=== PATIENT | male | born 1955 | race African-American/Black ===

== ENCOUNTER 2017-04-23 17:56 | Emergency (ER) | payer SELFPAY ==
[~2017-04-23] VITALS: Ht 182.9 cm; Wt 92.0 kg
[2017-04-23 19:05] LABS: BASOPHILS % 0.5 % (0.0-2.0); EOSINOPHILS % 1.4 % (0.0-5.0); HEMATOCRIT. 39.1 % (42.0-52.0); HEMOGLOBIN. 12.7 g/dL (14.0-18.0); LYMPHOCYTES % 18.1 % (20.0-50.0); MEAN CORPUSCULAR HEMOGLOBIN 27.8 pg (28.0-32.0); MEAN CORPUSCULAR VOLUME 85.2 fL (80.0-94.0); MEAN PLATELET VOLUME 9.4 fl (7.4-10.4); MONOCYTES % 5.9 % (2.0-8.0); NEUTROPHILS % 74.1 % (40.0-76.0); PLATELET 201 x1000/uL (130-400); RED BLOOD CELL COUNT 4.59 mill/uL (4.7-6.1); RED CELL DISTRIBUTION WIDTH 14.5 % (11.6-14.6)
[2017-04-23 19:14] LABS: PROTHROMBIN TIME 10.8 sec (9.4-11.6)
[2017-04-23 19:16] LABS: AMMONIA < 10 uMol/L (<32)
[2017-04-23 19:17] LABS: CHLORIDE 106 mEq/L (98-107); ETHANOL BLOOD < 10 mg/dL
[2017-04-23] MEDS ORDERED: KETOROLAC 60MG/2ML VIAL IM ONE (21:15)
[2017-04-23 21:37] VITALS: BP 151/104
== END 2017-04-23 23:42 | disposition left against medical advice (07) ==
LOC: ER 18:35
DX: G93.40 Encephalopathy, unspecified (principal); M25.562 Pain in left knee; I10 Essential (primary) hypertension; R79.1 Abnormal coagulation profile; Z79.899 Other long term (current) drug therapy
CPT/HCPCS: 36415; 73560; 80053; 80307; 80329; 82140; 85025; 85610; 96372; 99285; G0482; J1885; Z7610

== ENCOUNTER 2017-04-24 01:25 | Emergency (ER) | payer BC, MEDICARE ==
[~2017-04-24] VITALS: Ht 180.3 cm; Wt 91.0 kg
[2017-04-24] MEDS ORDERED: ACETAMINOPHEN 500MG TABLET PO ONE (03:45)
[2017-04-24 04:31] VITALS: BP 158/106
== END 2017-04-24 04:55 | disposition home or self-care (01) ==
LOC: ER 01:25
DX: M17.12 Unilateral primary osteoarthritis, left knee (principal); M25.462 Effusion, left knee; I10 Essential (primary) hypertension; F17.200 Nicotine dependence, unspecified, uncomplicated; F12.10 Cannabis abuse, uncomplicated; F16.10 Hallucinogen abuse, uncomplicated; Z98.890 Other specified postprocedural states
CPT/HCPCS: 99282

== ENCOUNTER 2017-10-15 12:12 | Emergency (ER) | payer BC, MEDICARE ==
[~2017-10-15] VITALS: Ht 180.3 cm; Wt 86.8 kg
[2017-10-15 13:28] LABS: BASOPHILS % 0.8 % (0.0-2.0); HEMATOCRIT. 38.3 % (42.0-52.0); HEMOGLOBIN. 12.9 g/dL (14.0-18.0); LYMPHOCYTES % 25.5 % (20.0-50.0); MEAN CORPUSCULAR HEMOGLOBIN 28.7 pg (28.0-32.0); MEAN CORPUSCULAR VOLUME 85.4 fL (80.0-94.0); MEAN PLATELET VOLUME 9.3 fl (7.4-10.4); MONOCYTES % 7.5 % (2.0-8.0); NEUTROPHILS % 64.2 % (40.0-76.0); PLATELET 185 x1000/uL (130-400); RED BLOOD CELL COUNT 4.49 mill/uL (4.7-6.1); RED CELL DISTRIBUTION WIDTH 14.6 % (11.6-14.6)
[2017-10-15 13:29] LABS: CHLORIDE 106 mEq/L (98-107)
[2017-10-15 13:33] LABS: PARTIAL THROMBOPLASTIN TIME 27.9 sec (23.4-31.0); PROTHROMBIN TIME 10.1 sec (9.1-11.1)
[2017-10-15 17:10] VITALS: BP 127/86
== END 2017-10-15 17:11 | disposition home or self-care (01) ==
LOC: ER 12:12
DX: S22.42XA Multiple fractures of ribs, left side, initial encounter for closed fracture (principal); X58.XXXA Exposure to other specified factors, initial encounter; Y93.9 Activity, unspecified; Y92.9 Unspecified place or not applicable; R10.10 Upper abdominal pain, unspecified; I10 Essential (primary) hypertension; F16.10 Hallucinogen abuse, uncomplicated; F12.90 Cannabis use, unspecified, uncomplicated; F17.210 Nicotine dependence, cigarettes, uncomplicated
CPT/HCPCS: 36415; 71045; 71250; 80053; 83690; 84484; 85025; 85610; 85730; 93005; 99285; Z7610

== ENCOUNTER 2018-07-18 17:14 | Emergency (ER) | payer BC, MEDICARE ==
[~2018-07-18] VITALS: Ht 172.7 cm; Wt 85.0 kg
[2018-07-18 17:24] VITALS: BP 132/78
== END 2018-07-18 20:11 | disposition left against medical advice (07) ==
LOC: ER 17:26
DX: M25.562 Pain in left knee (principal); Z53.21 Procedure and treatment not carried out due to patient leaving prior to being seen by health care provider

== ENCOUNTER 2018-07-27 16:02 | Emergency (ER) | payer MEDICARE, BC ==
[~2018-07-27] VITALS: Ht 177.8 cm; Wt 72.0 kg
[2018-07-27 16:45] VITALS: BP 150/90
== END 2018-07-27 18:30 | disposition left against medical advice (07) ==
LOC: ER 16:02
DX: Z53.21 Procedure and treatment not carried out due to patient leaving prior to being seen by health care provider (principal)

== ENCOUNTER 2019-01-06 17:07 | Emergency (ER) | payer BC, MEDICARE ==
[~2019-01-06] VITALS: Ht 177.8 cm; Wt 85.0 kg
[2019-01-06 20:35] LABS: BASOPHILS % 0.4 % (0.0-2.0); HEMATOCRIT. 40.7 % (42.0-52.0); HEMOGLOBIN. 13.9 g/dL (14.0-18.0); MEAN CORPUSCULAR HEMOGLOBIN 29.7 pg (28.0-32.0); MEAN CORPUSCULAR VOLUME 87.1 fL (80.0-94.0); MEAN PLATELET VOLUME 9.5 fl (7.4-10.4); MONOCYTES % 4.5 % (2.0-8.0); NEUTROPHILS % 80.1 % (40.0-76.0); PLATELET 152 x1000/uL (130-400); RED BLOOD CELL COUNT 4.67 mill/uL (4.7-6.1); RED CELL DISTRIBUTION WIDTH 14.2 % (11.6-14.6)
[2019-01-06 21:16] LABS: CHLORIDE 111 mEq/L (98-107)
[2019-01-06 21:20] LABS: ETHANOL BLOOD < 10 mg/dL
[2019-01-06 21:31] LABS: CLARITY URINE CLEAR (CLEAR); COLOR URINE YELLOW (YELLOW); KETONES URINE NEGATIVE (NEGATIVE); LEUKOCYTE ESTERASE URINE NEGATIVE (NEGATIVE); NITRITE URINE NEGATIVE (NEGATIVE); OCCULT BLOOD URINE 1+ (NEGATIVE); PROTEIN URINE 2+ (NEGATIVE); SPECIFIC GRAVITY URINE 1.018 (1.005-1.030); UROBILINOGEN URINE 0.2 E.U./dL (0.2-1.0)
[2019-01-06 22:12] LABS: CANNABINOID URINE SCREEN NEGATIVE (NEGATIVE)
[2019-01-06 22:13] LABS: *AMPHETAMINES SCREEN URINE NEGATIVE (NEGATIVE); *BARBITURATES SCREEN URINE NEGATIVE (NEGATIVE); *BENZODIAZEPINES SCREEN URINE NEGATIVE (NEGATIVE); *COCAINE SCREEN URINE NEGATIVE (NEGATIVE); METHADONE URINE SCREEN NEGATIVE (NEGATIVE); OPIATES URINE SCREEN NEGATIVE (NEGATIVE)
[2019-01-06 22:14] LABS: PHENCYCLIDINE URINE SCREEN PRESUMTIVE POSITIVE (NEGATIVE)
[2019-01-06] MEDS ORDERED: TRAMADOL 50MG TABLET PO ONE (23:45)
[2019-01-07] MEDS ORDERED: KETOROLAC 30MG/ML VIAL IM ONE (01:00)
[2019-01-07 01:42] VITALS: BP 152/94
== END 2019-01-07 04:19 | disposition home or self-care (01) ==
LOC: ER 17:07
DX: S02.85XA Fracture of orbit, unspecified, initial encounter for closed fracture (principal); S00.83XA Contusion of other part of head, initial encounter; M54.2 Cervicalgia; M25.512 Pain in left shoulder; I10 Essential (primary) hypertension; F12.10 Cannabis abuse, uncomplicated; Y04.0XXA Assault by unarmed brawl or fight, initial encounter; Y93.89 Activity, other specified; Y92.89 Other specified places as the place of occurrence of the external cause; Y99.8 Other external cause status
CPT/HCPCS: 36415; 70450; 70486; 71045; 72125; 73030; 80053; 80305; 80320; 81003; 82962; 85025; 96372; 99284; J1885; Z7610; G0480

== ENCOUNTER 2019-01-11 15:31 | Emergency (ER) | payer BC, MEDICARE ==
[~2019-01-11] VITALS: Ht 180.3 cm; Wt 79.0 kg
[2019-01-11] MEDS ORDERED: ACETAMINOPHEN 325MG TABLET PO ONE (16:15)
[2019-01-11 17:31] VITALS: BP 128/82
== END 2019-01-11 17:32 | disposition home or self-care (01) ==
LOC: ER 15:51
DX: S06.9X9A Unspecified intracranial injury with loss of consciousness of unspecified duration, initial encounter (principal); S02.2XXA Fracture of nasal bones, initial encounter for closed fracture; M25.512 Pain in left shoulder; W17.89XA Other fall from one level to another, initial encounter; Y92.480 Sidewalk as the place of occurrence of the external cause; Y04.2XXA Assault by strike against or bumped into by another person, initial encounter; Y93.89 Activity, other specified; I10 Essential (primary) hypertension; F12.90 Cannabis use, unspecified, uncomplicated
CPT/HCPCS: 99284

== ENCOUNTER 2019-01-23 19:39 | Emergency (ER) | payer BC, MEDICARE ==
[~2019-01-23] VITALS: Ht 180.3 cm; Wt 80.0 kg
[2019-01-23 19:50] VITALS: BP 148/90
[2019-01-23] MEDS ORDERED: IBUPROFEN 600MG TABLET PO ONE (21:30)
== END 2019-01-23 23:36 | disposition home or self-care (01) ==
LOC: ER 19:39
DX: M54.5 Low back pain (principal); I10 Essential (primary) hypertension; W01.0XXA Fall on same level from slipping, tripping and stumbling without subsequent striking against object, initial encounter; Y93.89 Activity, other specified; Y92.89 Other specified places as the place of occurrence of the external cause; Y99.8 Other external cause status
CPT/HCPCS: 99283

== ENCOUNTER 2019-09-11 11:55 | Emergency (ER) | payer BC, MEDICARE ==
[~2019-09-11] VITALS: Ht 188 cm; Wt 100.0 kg
[2019-09-11 12:27] VITALS: BP 158/49
[2019-09-11 12:27] LABS: BASOPHILS % 1.1 % (0.0-2.0); EOSINOPHILS % 4.5 % (0.0-5.0); HEMATOCRIT. 35.7 % (42.0-52.0); LYMPHOCYTES % 32.9 % (20.0-50.0); MEAN CORPUSCULAR VOLUME 89.1 fL (80.0-94.0); MEAN PLATELET VOLUME 9.5 fl (7.4-10.4); MONOCYTES % 5.6 % (2.0-8.0); NEUTROPHILS % 55.9 % (40.0-76.0); PLATELET 146 x1000/uL (130-400); RED BLOOD CELL COUNT 4.01 mill/uL (4.7-6.1); RED CELL DISTRIBUTION WIDTH 14.5 % (11.6-14.6)
[2019-09-11 12:30] LABS: CHLORIDE 112 mEq/L (98-107)
[2019-09-11 12:35] LABS: ETHANOL BLOOD < 10 mg/dL
[2019-09-11 13:03] LABS: CLARITY URINE CLEAR (CLEAR); COLOR URINE YELLOW (YELLOW); KETONES URINE NEGATIVE (NEGATIVE); LEUKOCYTE ESTERASE URINE NEGATIVE (NEGATIVE); NITRITE URINE NEGATIVE (NEGATIVE); OCCULT BLOOD URINE NEGATIVE (NEGATIVE); PROTEIN URINE 2+ (NEGATIVE); SPECIFIC GRAVITY URINE 1.015 (1.005-1.030); UROBILINOGEN URINE 0.2 E.U./dL (0.2-1.0)
[2019-09-11 13:21] LABS: CANNABINOID URINE SCREEN NEGATIVE (NEGATIVE); METHADONE URINE SCREEN NEGATIVE (NEGATIVE); PHENCYCLIDINE URINE SCREEN PRESUMTIVE POSITIVE (NEGATIVE)
[2019-09-11 13:23] LABS: *AMPHETAMINES SCREEN URINE NEGATIVE (NEGATIVE)
[2019-09-11 13:24] LABS: *BENZODIAZEPINES SCREEN URINE NEGATIVE (NEGATIVE); *COCAINE SCREEN URINE NEGATIVE (NEGATIVE); OPIATES URINE SCREEN NEGATIVE (NEGATIVE)
[2019-09-11 13:28] LABS: *BARBITURATES SCREEN URINE NEGATIVE (NEGATIVE)
== END 2019-09-11 14:13 | disposition home or self-care (01) ==
LOC: ER 11:55
DX: T40.991A Poisoning by other psychodysleptics [hallucinogens], accidental (unintentional), initial encounter (principal); I10 Essential (primary) hypertension; F12.10 Cannabis abuse, uncomplicated; Y92.89 Other specified places as the place of occurrence of the external cause
CPT/HCPCS: 36415; 80053; 80305; 80307; 80320; 80329; 81003; 85025; 93005; 99284; G0480

== ENCOUNTER 2020-01-26 16:02 | Emergency (ER) | payer BC, MEDICARE ==
[~2020-01-26] VITALS: Ht 188 cm; Wt 87.0 kg
[2020-01-26 16:58] VITALS: BP 175/99
== END 2020-01-26 17:00 | disposition home or self-care (01) ==
LOC: ER 16:02
DX: G93.40 Encephalopathy, unspecified (principal); R41.82 Altered mental status, unspecified; I10 Essential (primary) hypertension; F12.10 Cannabis abuse, uncomplicated; F17.200 Nicotine dependence, unspecified, uncomplicated
CPT/HCPCS: 99283

== ENCOUNTER 2021-03-26 12:58 | Emergency (ER) | payer BC, MEDICARE ==
[~2021-03-26] VITALS: Ht 180.3 cm; Wt 82.0 kg
[2021-03-26 13:35] VITALS: BP 145/56
[2021-03-26] MEDS ORDERED: IBUP-2028 MT (21:29)
== END 2021-03-26 13:44 | disposition home or self-care (01) ==
LOC: ER 13:06
DX: Z00.00 Encounter for general adult medical examination without abnormal findings (principal); I10 Essential (primary) hypertension; F12.10 Cannabis abuse, uncomplicated
CPT/HCPCS: 99283

== ENCOUNTER 2021-03-26 19:44 | Emergency (ER) | payer MEDICARE ==
[~2021-03-26] VITALS: Ht 180.3 cm; Wt 73.0 kg
[2021-03-26] MEDS ORDERED: IBUPROFEN 400MG TABLET PO ONE (20:15)
[2021-03-26 20:23] VITALS: BP 136/92
[2021-03-26] MEDS ORDERED: IBUP-2028 MT (21:29)
== END 2021-03-26 21:53 | disposition home or self-care (01) ==
LOC: ER 19:44
DX: M79.672 Pain in left foot (principal); M25.572 Pain in left ankle and joints of left foot; I10 Essential (primary) hypertension; E11.9 Type 2 diabetes mellitus without complications; F12.10 Cannabis abuse, uncomplicated
CPT/HCPCS: 73610; 73630; 99284

== ENCOUNTER 2021-09-21 19:34 | Emergency (ER) | payer MEDICARE ==
[~2021-09-21] VITALS: Ht 180.3 cm; Wt 84.0 kg
[~2021-09-21 19:34] MED LIST: IBUP-2028 MT
[2021-09-21 19:37] VITALS: BP 162/93
== END 2021-09-21 21:56 | disposition left against medical advice (07) ==
LOC: ER 19:34
DX: Z53.21 Procedure and treatment not carried out due to patient leaving prior to being seen by health care provider (principal)

== ENCOUNTER 2021-09-23 19:57 | Emergency (ER) | payer MEDICARE ==
[~2021-09-23] VITALS: Ht 170.2 cm; Wt 83.0 kg
[2021-09-23 19:59] VITALS: BP 150/82
== END 2021-09-23 20:54 | disposition left against medical advice (07) ==
LOC: ER 19:57
DX: Z53.21 Procedure and treatment not carried out due to patient leaving prior to being seen by health care provider (principal)

== ENCOUNTER 2022-05-11 16:29 | Emergency (ER) | payer MEDICARE ==
[~2022-05-11] VITALS: Ht 180.3 cm; Wt 82.0 kg
[2022-05-11] MEDS ORDERED: AMLODIPINE 5MG TABLET PO ONE ×2 (17:00→19:45)
[2022-05-11 18:49] LABS: BASOPHILS % 1.3 % (0.0-2.0); EOSINOPHILS % 4.6 % (0.0-5.0); HEMATOCRIT. 36.5 % (42.0-52.0); HEMOGLOBIN. 12.2 g/dL (14.0-18.0); LYMPHOCYTES % 27.2 % (20.0-50.0); MEAN CORPUSCULAR HEMOGLOBIN 29.4 pg (28.0-32.0); MEAN CORPUSCULAR VOLUME 88.3 fL (80.0-94.0); MEAN PLATELET VOLUME 8.7 fl (7.4-10.4); NEUTROPHILS % 61.9 % (40.0-76.0); PLATELET 240 x1000/uL (130-400); RED BLOOD CELL COUNT 4.14 mill/uL (4.7-6.1)
[2022-05-11 18:59] LABS: CHLORIDE 109 mEq/L (98-107)
[2022-05-11 19:06] LABS: ETHANOL BLOOD < 10 mg/dL
[2022-05-11 19:42] VITALS: BP 180/138
[2022-05-11] MEDS ORDERED: AMLO5TAB4 MT (19:52)
== END 2022-05-11 20:23 | disposition home or self-care (01) ==
LOC: ER 16:29
DX: I16.0 Hypertensive urgency (principal); F12.10 Cannabis abuse, uncomplicated; E11.9 Type 2 diabetes mellitus without complications; I49.9 Cardiac arrhythmia, unspecified; Z98.890 Other specified postprocedural states; S09.90XA Unspecified injury of head, initial encounter; X58.XXXA Exposure to other specified factors, initial encounter; Y93.89 Activity, other specified; Y92.89 Other specified places as the place of occurrence of the external cause; Y99.8 Other external cause status
CPT/HCPCS: 36415; 80053; 80320; 85025; 93005; 99285; G0480

== ENCOUNTER 2022-10-11 17:01 | Emergency (ER) | payer MEDICARE ==
[~2022-10-11] VITALS: Ht 180.3 cm; Wt 82.0 kg
[~2022-10-11 17:01] MED LIST changes: +AMLO5TAB4 MT
[2022-10-11 17:06] VITALS: BP 159/113; PULSE 100; RESP 16; TEMP 98.6; O2SAT 98
== END 2022-10-11 18:23 | disposition home or self-care (01) ==
LOC: ER 17:01
DX: Z04.3 Encounter for examination and observation following other accident (principal); E11.9 Type 2 diabetes mellitus without complications; I10 Essential (primary) hypertension
CPT/HCPCS: 99283

== ENCOUNTER 2023-03-18 19:28 | Emergency (ER) | payer MEDICARE ==
[~2023-03-18] VITALS: Ht 177.8 cm; Wt 80.0 kg
[2023-03-18 19:34] VITALS: O2SAT 99
[2023-03-18 21:37] LABS: BASOPHILS % 0.7 % (0.0-2.0); EOSINOPHILS % 1.9 % (0.0-5.0); HEMATOCRIT. 37.4 % (42.0-52.0); HEMOGLOBIN. 12.2 g/dL (14.0-18.0); LYMPHOCYTES % 16.6 % (20.0-50.0); MEAN CORPUSCULAR HEMOGLOBIN 28.6 pg (28.0-32.0); MEAN CORPUSCULAR HGB CONC 32.7 g/dL (31.0-37.0); MEAN CORPUSCULAR VOLUME 87.5 fL (80.0-94.0); MEAN PLATELET VOLUME 8.9 fl (7.4-10.4); MONOCYTES % 9.4 % (2.0-8.0); NEUTROPHILS % 71.4 % (40.0-76.0); PLATELET 158 x1000/uL (130-400); RED BLOOD CELL COUNT 4.27 mill/uL (4.7-6.1); RED CELL DISTRIBUTION WIDTH 15.3 % (11.6-14.6); WHITE BLOOD COUNT 5.6 x1000/uL (4.5-11.0)
[2023-03-18 21:48] LABS: ALANINE AMINOTRANSFERASE < 7 IU/L (10-49); ALBUMIN 3.8 g/dL (3.2-4.8); ASPARTATE AMINOTRANSFERASE 13 IU/L (<34); BILIRUBIN TOTAL 0.3 mg/dL (0.1-1.0); CALCIUM 9.2 mg/dL (8.7-10.4); CARBON DIOXIDE 24 mEq/L (21-32); CHLORIDE 108 mEq/L (98-107); CREATININE 2.1 mg/dL (0.6-1.3); ETHANOL BLOOD < 10 mg/dL (<10); GLUCOSE 91 mg/dL (70-105); SODIUM 141 mEq/L (136-145); UREA NITROGEN BLOOD 23 mg/dL (9-23)
[2023-03-19 10:05] VITALS: BP 132/72; PULSE 75; RESP 17; TEMP 98.2
== END 2023-03-19 10:06 | disposition home or self-care (01) ==
LOC: ER 19:28
DX: T40.991A Poisoning by other psychodysleptics [hallucinogens], accidental (unintentional), initial encounter (principal); F12.10 Cannabis abuse, uncomplicated; E11.9 Type 2 diabetes mellitus without complications; R41.82 Altered mental status, unspecified; I10 Essential (primary) hypertension; X58.XXXA Exposure to other specified factors, initial encounter
CPT/HCPCS: 36415; 80053; 80320; 85025; 99284; G0480